=== PATIENT | female | born 1990 | race Caucasian/White ===

== ENCOUNTER → 2016-09-29 | Outpatient (CLI) | payer BC ==
--- NOTE | 2016-09-29 13:12 | RAD ---
Indication fever for 2 weeks. Chest pain and shortness of breath. PA and lateral views of the chest were obtained. Comparison is made to an examination 01/04/2011. The heart, pulmonary vessels and mediastinum appear normal. The lungs are clear. There has not been a significant change compared to the previous exam. IMPRESSION: Normal study
== END | disposition home or self-care (01) ==
LOC: RAD 12:51
PROVIDERS: ATTEND Family Medicine
DX: R50.9 Fever, unspecified (principal); R07.9 Chest pain, unspecified; R06.02 Shortness of breath
CPT/HCPCS: 71020

== ENCOUNTER → 2016-09-29 | Outpatient (CLI) | payer BC | END | disposition home or self-care (01) | LOC: LAB 13:38 | PROVIDERS: ATTEND Family Medicine | DX: F41.9 Anxiety disorder, unspecified (principal) | CPT/HCPCS: 36415; 85379 ==

== ENCOUNTER 2016-10-12 20:37 | Emergency (ER) | payer BC ==
--- NOTE | 2016-10-12 21:16 | PHYS DOC ---
General Chief Complaint: CHEST PAIN Stated Complaint: CHEST PAIN Time Seen by MD: 20:52 Source: patient, family Exam Limitations: no limitations Problems: History of Present Illness Initial Comments Patient is a 26-year-old female who comes to the ED complaining of chest pain and palpitations. Patient states for the past 3 weeks she has had continuous palpitations with shortness of breath and today she developed left-sided chest pain with arm and neck aching and nausea no vomiting. Symptoms came on at rest. Patient denies any exacerbating or relieving factors. Patient has been evaluated for this at [facility] with normal findings. Patient was diagnosed with anxiety and prescribed Xanax. Patient saw her primary care doctor Dr. Szymanski who also ran some tests and diagnosed the patient with anxiety. He prescribed Zoloft which the patient refuses to take. Patient denies any stressors or anxiety she says she has history of anxiety in the past and this is not it. Patient is insistent that she is having a heart attack and she is going to . She also states that she's having trouble sleeping and concentrating and she is constantly watching her vital signs fretting over her blood pressure which is normal. Patient's mom is accompanying her, she answers questions for the patient and continually rubs the patient's shoulders and the patient becomes very needy while her mom is in the exam room. Patient readily admits to smoking cigarettes and marijuana and when it is pointed out that marijuana and cigarettes can make palpitations worse she becomes defensive and states she has used these substances for years and they've never caused her any problems. ED vital signs: 99.3, 98, 18, 151/92, 100% room air Timing/Duration: constant (at least 3 weeks) Severity: severe Modifying Factors: improves with other Associated Symptoms: chest pain, shortness of breath, other Allergies: Coded Allergies: No Known Drug Allergies (Unverified , 10/12/16) Past Medical History Medical History: other (endometriosis, Crohn's disease, anxiety/panic) Surgical History: other (hernia repair, exploratory laparotomy) Social History Smoker: cigarettes Alcohol: none Drugs: marijuana Review of Systems Constitutional: see HPI, denies chills, denies fever Respiratory: see HPI, denies cough, shortness of breath, denies wheezing Cardiovascular: chest pain, palpitations, denies syncope Gastrointestinal: denies abdominal pain, denies diarrhea, nausea, denies vomiting Genitourinary: denies dysuria, denies frequency, denies hematuria Musculoskeletal: denies back pain, denies joint swelling, denies neck pain Psychiatric/Neurological: see HPI, denies headache Hematologic/Lymphatic: denies blood clots, denies easy bleeding, denies easy bruising Physical Exam General Appearance: WD/WN, moderate distress Eyes: bilateral eye normal inspection, bilateral eye PERRL, bilateral eye EOMI Ear, Nose, Throat: hearing grossly normal, normal ENT inspection, normal pharynx Neck: non-tender, supple Respiratory: normal breath sounds, no respiratory distress Cardiovascular: normal peripheral pulses, regular rate, rhythm Gastrointestinal: non tender, soft Back: no CVA tenderness, no vertebral tenderness Extremities: non-tender, normal inspection, no pedal edema Neurologic/Psychiatric: coat baster II-XII nml as tested, no motor/sensory deficits, alert, oriented x 3, other (very anxious worrisome defensive good eye contact and speech normal denies suicidal or homicidal ideation no witnessed hallucinations) Skin: normal color, warm/dry Orders, Labs, Meds EKG: Sinus tachycardia 102 bpm, no STEMI interpreted by me. Chest AP: No acute cardiopulmonary process, it was reviewed by me. Pertinent labs: Potassium 3.2, d-dimer and cardiac enzymes within normal limits , urine drug screen positive for benzodiazepines and marijuana. PE and acute coronary syndrome as well as acute pulmonary issues ruled out in the emergency department. I discussed need for Holter monitor and outpatient cardiology referral. If cardiology evaluation negative must consider anxiety as possible etiology for symptoms. The patient is very frustrated becomes cry as she expected her condition to be resolved after tonight ED visit. She was advised to stop smoking cigarettes and marijuana. IMPRESSIONS: Chest Pain Hypokalemia Marijuana Abuse Tobaccoism Departure Time of Disposition: 22:23 Disposition: 01 HOME, SELF-CARE Diagnosis: Chest Pain nonspecific Condition: STABLE Patient Instructions: Chest Pain (Nonspecific), [id number] Additional Instructions: Rest, activity as tolerated. Aggressive hydration with Gatorade and water. Discontinue marijuana abuse, seek medical assistance if necessary. An outpatient cardiology evaluation is recommended. Follow-up with Dr. Szymanski this week for a recheck and to discuss possibility of event monitor and/or cardiology referral. Return to ED with new or changing symptoms. DIEGO ELAINE DO Oct 12, 2016 21:16
[2016-10-12 21:28] LABS: BASO # 0.1 x10^3/uL (0.0-0.2); BASO % 1 % (0-3); EOS # 0.1 x10^3/uL (0.0-0.7); EOS % 2 % (0-3); HEMATOCRIT 40.4 % (36.0-47.0); HEMOGLOBIN 13.8 g/dL (12.0-15.5); LYMPH # 4.2 x10^3/uL (1.0-4.8); LYMPH % 45 % (24-48); MEAN CORPUSCULAR HEMOGLOBIN 31 pg (25-35); MEAN CORPUSCULAR HGB CONC 34 g/dL (31-37); MEAN CORPUSCULAR VOLUME 90 fL (79-100); MONO # 0.6 x10^3/uL (0.0-1.1); MONO % 7 % (0-9); NEUT # 4.3 x10^3uL (1.8-7.7); NEUT % 46 % (31-73); PLATELET COUNT 192 x10^3/uL (140-400); RED BLOOD COUNT 4.47 x10^6/uL (3.50-5.40); RED CELL DISTRIBUTION WIDTH 13.5 % (11.5-14.5); WHITE BLOOD COUNT 9.3 x10^3/uL (4.0-11.0)
[2016-10-12 21:39] LABS: AMPHETAMINE/METHAMPHETAMINE NEG (NEG); BARBITURATES NEG (NEG); BENZODIAZEPINES POS (NEG); CANNABINOIDS POS (NEG); COCAINE NEG (NEG); METHADONE NEG (NEG); OPIATES NEG (NEG); PHENCYCLIDINE NEG (NEG)
[2016-10-12 21:42] LABS: ALBUMIN 3.7 g/dL (3.4-5.0); ALBUMIN/GLOBULIN RATIO 1.1 (1.0-1.7); CALCIUM 8.7 mg/dL (8.5-10.1); CREATININE 0.6 mg/dL (0.6-1.0); GFR 121.8; POTASSIUM 3.2 mmol/L (3.5-5.1); TOTAL BILIRUBIN 0.3 mg/dL (0.2-1.0); TOTAL PROTEIN 7.1 g/dL (6.4-8.2)
[2016-10-12 21:43] LABS: U PREG PATIENT NEGATIVE (NEG)
[2016-10-12 21:50] LABS: BILIRUBIN,URINE NEG (NEG); CLARITY,URINE CLEAR; COLOR,URINE YELLOW; GLUCOSE,URINE NEG (NEG)
[2016-10-12 21:51] LABS: BACTERIA,URINE 0 /HPF (0-FEW); NITRITE,URINE NEG (NEG); RBC,URINE 0 /HPF (0-2); SQUAMOUS EPITHELIAL CELL,UR MOD /LPF; UROBILINOGEN,URINE 0.2 mg/dL (0.2 mg/dL)
--- NOTE | 2016-10-12 21:55 | EKG ---
[address] [address] Test Date: 2016-10-12 Test Time: 21:01:08 Pat Name: URBANO ARIAS Department: Room: Gender: F Rn Child: MAYANK : 1990 Requested By: DIEGO ELAINE Order Number: [id number] Reading MD: Sonny Tolbert Measurements Intervals Ringle Rate: 102 P: -19 SD: 138 QRS: 69 QRSD: 78 T: 38 QT: 330 QTc: 434 Interpretive Statements SINUS TACHYCARDIA Electronically Signed On 10-14-2016 11:02:53 CDT by Sonny Tolbert
[2016-10-12 22:11] VITALS: BP 132/91
[2016-10-12] MEDS ORDERED: POTASSIUM CHLORIDE 20 MEQ TABLET.ER. PO ONE (22:15)
--- NOTE | 2016-10-13 07:44 | RAD ---
Portable chest, 10/12/2016: History: Chest pain Comparison is made to a study from 09/29/2016. The heart size and pulmonary vascularity are normal. No pulmonary infiltrates are seen. There is no evidence of pleural fluid. There is a minimal thoracic scoliosis. IMPRESSION: No acute cardiopulmonary abnormality is detected.
== END 2016-10-12 22:35 | disposition home or self-care (01) ==
LOC: ER 20:37
DX: R07.89 Other chest pain (principal); E87.6 Hypokalemia; F12.10 Cannabis abuse, uncomplicated; F17.210 Nicotine dependence, cigarettes, uncomplicated; K50.90 Crohn's disease, unspecified, without complications; F41.9 Anxiety disorder, unspecified
CPT/HCPCS: 36415; 71010; 80053; 80305; 80320; 81001; 81025; 82550; 83690; 84484; 85027; 85379; 93005; G0481; 99285-25

== ENCOUNTER → 2017-09-16 | Outpatient (CLI) | payer BC ==
--- NOTE | 2017-09-16 17:19 | RAD ---
Left RIBS with chest, 3 views, 09/16/2017: HISTORY: Left-sided rib pain No rib fracture or bony abnormality is detected. There is no evidence of underlying pneumothorax, hemothorax or pulmonary infiltrate. The heart size is normal. There is a minimal thoracic scoliosis IMPRESSION: No significant left rib abnormality is detected. Electronically signed by: Max Min MD (09/16/2017 5:16 PM) [facility]
== END | disposition home or self-care (01) ==
LOC: PMG 15:05
PROVIDERS: ATTEND Physician Assistant
DX: M41.84 Other forms of scoliosis, thoracic region (principal)
CPT/HCPCS: 71101

== ENCOUNTER → 2017-10-11 | Outpatient (CLI) | payer OTHER ==
--- NOTE | 2017-10-11 14:31 | RAD ---
EXAM: Abdomen series. HISTORY: Pain. COMPARISON: 06/08/2012 FINDINGS: A frontal view of the chest and frontal upright and supine views of the abdomen are obtained. There is no infiltrate, pleural effusion or pneumothorax. The heart is normal in size. There is gas and stool within the colon. No abnormally dilated air-filled loop of bowel seen. There is no free air. IMPRESSION: 1. No acute pulmonary finding. 2. Nonobstructive bowel gas pattern. Electronically signed by: Renetta Cain MD (10/11/2017 2:27 PM) [place] [id number]
== END | disposition home or self-care (01) ==
LOC: PMG 09:11
PROVIDERS: ATTEND Physician Assistant Medical
DX: K50.90 Crohn's disease, unspecified, without complications (principal)
CPT/HCPCS: 74022

== ENCOUNTER 2018-01-21 10:34 | Emergency (ER) | payer OTHER ==
[~2018-01-21] VITALS: Ht 154.9 cm; Wt 53.6 kg
[2018-01-21] MEDS ORDERED: IV NORMAL SALINE 1,000ML 1,000 ML IV SCH (11:00)
--- NOTE | 2018-01-21 11:10 | EKG ---
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
[2018-01-21 11:41] LABS: BASO % 1 % (0-3); EOS # 0.1 x10^3/uL (0.0-0.7); EOS % 1 % (0-3); HEMATOCRIT 46.6 % (36.0-47.0); HEMOGLOBIN 15.8 g/dL (12.0-15.5); LYMPH # 2.4 x10^3/uL (1.0-4.8); LYMPH % 33 % (24-48); MEAN CORPUSCULAR HEMOGLOBIN 30 pg (25-35); MEAN CORPUSCULAR HGB CONC 34 g/dL (31-37); MEAN CORPUSCULAR VOLUME 90 fL (79-100); MONO # 0.3 x10^3/uL (0.0-1.1); MONO % 5 % (0-9); NEUT # 4.3 x10^3uL (1.8-7.7); NEUT % 61 % (31-73); PLATELET COUNT 242 x10^3/uL (140-400); RED BLOOD COUNT 5.21 x10^6/uL (3.50-5.40); RED CELL DISTRIBUTION WIDTH 13.8 % (11.5-14.5); WHITE BLOOD COUNT 7.1 x10^3/uL (4.0-11.0)
[2018-01-21 11:48] LABS: BARBITURATES NEG (NEG); BENZODIAZEPINES NEG (NEG); CANNABINOIDS NEG (NEG); COCAINE NEG (NEG); METHADONE NEG (NEG); OPIATES NEG (NEG); PHENCYCLIDINE NEG (NEG)
[2018-01-21 11:49] LABS: AMPHETAMINE/METHAMPHETAMINE NEG (NEG)
[2018-01-21 11:53] LABS: ALBUMIN 4.1 g/dL (3.4-5.0); ALBUMIN/GLOBULIN RATIO 1.1 (1.0-1.7); CALCIUM 10.1 mg/dL (8.5-10.1); CREATININE 0.7 mg/dL (0.6-1.0); GFR 101.1; POTASSIUM 3.8 mmol/L (3.5-5.1); TOTAL BILIRUBIN 0.4 mg/dL (0.2-1.0); TOTAL PROTEIN 7.8 g/dL (6.4-8.2)
[2018-01-21 11:57] LABS: BACTERIA,URINE FEW /HPF (0-FEW); BILIRUBIN,URINE NEG (NEG); CLARITY,URINE CLEAR; COLOR,URINE YELLOW; GLUCOSE,URINE NEG (NEG); NITRITE,URINE NEG (NEG); RBC,URINE OCC /HPF (0-2); SQUAMOUS EPITHELIAL CELL,UR FEW /LPF; UROBILINOGEN,URINE 0.2 mg/dL (0.2 mg/dL)
[2018-01-21 12:12] LABS: U PREG PATIENT NEGATIVE (NEG)
--- NOTE | 2018-01-21 12:21 | PHYS DOC ---
Past History Past Medical History: Other Past Surgical History: Other Additional Smoking Information: 1/2 ppd x10 years Alcohol Use: Rarely Drug Use: None Adult General Chief Complaint Chief Complaint: DIZZY/LIGHT HEADED HPI HPI Patient is a 27 year old female with history of Crohn's disease on injection of Entyvio every 8 weeks who presents with complaining of feeling funny since yesterday. Patient states since yesterday she doesn't feel right but she cannot explain how is her feeding. Patient states when she walks she doesn't feel her feet in right way. Patient complaining of few episode of chest pain and shortness of breath that resolved. She denies headache, fever and chills, abdominal pain, nausea and vomiting, vaginal bleeding or discharge, , urinary symptom, changing her medication, taking illegal drugs or alcohol, history of the same problem. Review of Systems Review of Systems Constitutional: Denies fever or chills [] Eyes: Denies change in visual acuity, redness, or eye pain [] HENT: Denies nasal congestion or sore throat [] Respiratory: Denies cough or shortness of breath [] Cardiovascular: No additional information not addressed in HPI [] GI: Denies abdominal pain, nausea, vomiting, bloody stools or diarrhea [] : Denies dysuria or hematuria [] Musculoskeletal: Denies back pain or joint pain [] Integument: Denies rash or skin lesions [] Neurologic: Denies headache, focal weakness or sensory changes [] Endocrine: Denies polyuria or polydipsia [] All other systems were reviewed and found to be within normal limits, except as documented in this note. Current Medications Current Medications Current Medications Medications (Trade) Dose Ordered Sig/[facility] Start Time Stop Time Status Last Admin Dose Admin Sodium Chloride 1,000 ml @ 1,000 mls/hr Q1H 01/21/18 11:00 01/21/18 11:59 DC 01/21/18 11:20 1,000 MLS/HR Allergies Allergies Allergies Coded Allergies Type Severity Reaction Last Updated Verified No Known Drug Allergies 10/12/16 No Physical Exam Physical Exam Constitutional: Well developed, well nourished, no acute distress, non-toxic appearance. [] HENT: Normocephalic, atraumatic, bilateral external ears normal, oropharynx moist, no oral exudates, nose normal. [] Eyes: PERRLA, EOMI, conjunctiva normal, no discharge. [] Neck: Normal range of motion, no tenderness, supple, no stridor. [] Cardiovascular:Heart rate regular rhythm, no murmur [] Lungs & Thorax: Bilateral breath sounds clear to auscultation [] Abdomen: Bowel sounds normal, soft, no tenderness, no masses, no pulsatile masses. [] Skin: Warm, dry, no erythema, no rash. [] Back: No tenderness, no CVA tenderness. [] Extremities: No tenderness, no cyanosis, no clubbing, ROM intact, no edema. [] Neurologic: Alert and oriented X 3, normal motor function, normal sensory function, no focal deficits noted. [] Psychologic: Affect normal, judgement normal, mood normal. [] Current Patient Data Vital Signs Vital Signs Date Time Temp Pulse Resp B/P (MAP) Pulse Ox O2 Delivery O2 Flow Rate FiO2 01/21/18 10:44 98.6 84 16 100 Room Air Lab Results Laboratory Tests Test 01/21/18 11:20 White Blood Count 7.1 x10^3/uL (4.0-11.0) Red Blood Count 5.21 x10^6/uL (3.50-5.40) Hemoglobin 15.8 g/dL (12.0-15.5) H Hematocrit 46.6 % (36.0-47.0) Mean Corpuscular Volume 90 fL (79-100) Mean Corpuscular Hemoglobin 30 pg (25-35) Mean Corpuscular Hemoglobin Concent 34 g/dL (31-37) Red Cell Distribution Width 13.8 % (11.5-14.5) Platelet Count 242 x10^3/uL (140-400) Neutrophils (%) (Auto) 61 % (31-73) Lymphocytes (%) (Auto) 33 % (24-48) Monocytes (%) (Auto) 5 % (0-9) Eosinophils (%) (Auto) 1 % (0-3) Basophils (%) (Auto) 1 % (0-3) Neutrophils # (Auto) 4.3 x10^3uL (1.8-7.7) Lymphocytes # (Auto) 2.4 x10^3/uL (1.0-4.8) Monocytes # (Auto) 0.3 x10^3/uL (0.0-1.1) Eosinophils # (Auto) 0.1 x10^3/uL (0.0-0.7) Basophils # (Auto) 0.0 x10^3/uL (0.0-0.2) Urine Collection Type Unknown Urine Color Yellow Urine Clarity Clear Urine pH 7.0 Urine Specific Hamer 1.010 Urine Protein Neg (NEG-TRACE) Urine Glucose (UA) Neg mg/dL (NEG) Urine Ketones (Stick) Neg mg/dL (NEG) Urine Blood Neg (NEG) Urine Nitrite Neg (NEG) Urine Bilirubin Neg (NEG) Urine Urobilinogen Dipstick 0.2 mg/dL (0.2 mg/dL) Urine Leukocyte Esterase Neg (NEG) Urine RBC Occ /HPF (0-2) Urine WBC 1-4 /HPF (0-4) Urine Squamous Epithelial Cells Few /LPF Urine Transitional Epithelial Cells Occ /LPF Urine Bacteria Few /HPF (0-FEW) Urine Test Negative (NEG) Sodium Level 140 mmol/L (136-145) Potassium Level 3.8 mmol/L (3.5-5.1) Chloride Level 105 mmol/L (98-107) Carbon Dioxide Level 26 mmol/L (21-32) Anion Gap 9 (6-14) Blood Urea Nitrogen 4 mg/dL (7-20) L Creatinine 0.7 mg/dL (0.6-1.0) Estimated GFR (Cockcroft-Gault) 101.1 BUN/Creatinine Ratio 6 (6-20) Glucose Level 85 mg/dL (70-99) Lactic Acid Level 0.8 mmol/L (0.4-2.0) Calcium Level 10.1 mg/dL (8.5-10.1) Total Bilirubin 0.4 mg/dL (0.2-1.0) Aspartate Amino Transferase (AST) 19 U/L (15-37) Alanine Aminotransferase (ALT) 33 U/L (14-59) Alkaline Phosphatase 72 U/L (46-116) Troponin I Quantitative < 0.017 ng/mL (0-0.055) Total Protein 7.8 g/dL (6.4-8.2) Albumin 4.1 g/dL (3.4-5.0) Albumin/Globulin Ratio 1.1 (1.0-1.7) Lipase 225 U/L (73-393) Urine Opiates Screen Neg (NEG) Urine Methadone Screen Neg (NEG) Urine Barbiturates Neg (NEG) Urine Phencyclidine Screen Neg (NEG) Urine Amphetamine/Methamphetamine Neg (NEG) Urine Benzodiazepines Screen Neg (NEG) Urine Cocaine Screen Neg (NEG) Urine Cannabinoids Screen Neg (NEG) Urine Ethyl Alcohol Neg (NEG) EKG EKG EKG interpreted by me. EKG at 1106 showed normal sinus rhythm at rate of 72, no acute ST and T-wave abnormalities, multiple artifacts. Radiology/Procedures Radiology/Procedures [address] [address] IMAGING REPORT Signed PATIENT: URBANO WARREN ACCOUNT: [id number] : 1990 LOCATION: ER AGE: 27 SEX: F EXAM STATUS: PRE ER ORD. PHYSICIAN: KATELYN CANTRELL MD REASON: funny feeling, focal numbness PROCEDURE: CT HEAD WO CONTRAST CT HEAD WO CONTRAST History: Headaches and dizziness, body numbness for 1 to 2 days Comparison: None. Technique: Noncontrast CT imaging was performed of the head. Exposure: One or more of the following individualized dose reduction techniques were utilized for this examination: 1. Automated exposure control 2. Adjustment of the mA and/or kV according to patient size 3. Use of iterative reconstruction technique. Findings: There is mild motion. No convincing acute extra-axial or parenchymal hemorrhage is identified. There is no significant intra-axial mass effect, midline shift, or extra-axial fluid collection. The raman-white differentiation of the major vascular territories is preserved. The ventricles, sulci, and cisterns are within normal limits in size and configuration. The mastoid air cells and the visualized paranasal sinuses are aerated. No acute calvarial abnormality is identified. Impression: 1. No convincing acute intracranial abnormality is identified, exam degraded by some motion. Electronically signed by: Matt Gutierres MD (01/21/2018 1:05 PM) [facility] DICTATED AND SIGNED BY: MATT GUTIERRES MD DATE: 01/21/18 8209 CC: KATELYN CANTRELL MD; JYOTSNA COURTNEY ~ Course & Med Decision Making Course & Med Decision Making Pertinent Labs and Imaging studies reviewed. (See chart for details) Evaluation of patient in ER showed 27-year-old male patient with history of Crohn's disease with complaining of not feeling right and feeling funny. Patient had unremarkable physical exam and negative orthostatic vitals. Labs including CBC, CMP, cardiac enzymes, UA and UDS was unremarkable except for mild UTI. And treated with IV fluid and states her problems did not change. Patient complaining of not feeling Feet and CT head was unremarkable. Patient states she has history of anxiety and didn't take her anxiety medication today. Patient instructed to continue her anxiety medication and follow with her primary care physician or return to ER if not getting better. [] Dragon Disclaimer Dragon Disclaimer This electronic medical record was generated, in whole or in part, using a voice recognition dictation system. Departure Departure: Impression: Primary Impression: Urinary tract infection Additional Impressions: History of Crohn's disease Weakness Disposition: HOME, SELF-CARE (@1311) Condition: STABLE Referrals: JYOTSNA COURTNEY (PCP) Patient Instructions: Urinary Tract Infection, Weakness Additional Instructions: Drink plenty of liquids Follow-up with your primary care physician in 3-5 days Return to ER if not getting better Scripts Ciprofloxacin Hcl (CIPRO) 250 Mg Tablet 1 TAB PO BID, #6 TAB Prov: KATELYN CANTRELL MD 01/21/18 Critical Care Time Critical care time was 70 minutes exclusive of procedures. Problem Qualifiers KATELYN CANTRELL MD Jan 21, 2018 12:21
[2018-01-21 13:04] VITALS: BP 120/79
--- NOTE | 2018-01-21 13:08 | RAD ---
CT HEAD WO CONTRAST History: Headaches and dizziness, body numbness for 1 to 2 days Comparison: None. Technique: Noncontrast CT imaging was performed of the head. Exposure: One or more of the following individualized dose reduction techniques were utilized for this examination: 1. Automated exposure control 2. Adjustment of the mA and/or kV according to patient size 3. Use of iterative reconstruction technique. Findings: There is mild motion. No convincing acute extra-axial or parenchymal hemorrhage is identified. There is no significant intra-axial mass effect, midline shift, or extra-axial fluid collection. The raman-white differentiation of the major vascular territories is preserved. The ventricles, sulci, and cisterns are within normal limits in size and configuration. The mastoid air cells and the visualized paranasal sinuses are aerated. No acute calvarial abnormality is identified. Impression: 1. No convincing acute intracranial abnormality is identified, exam degraded by some motion. Electronically signed by: Rigo Gutierres MD (01/21/2018 1:05 PM) [facility]
[2018-01-21] MEDS ORDERED: CIPR250T30 PO (13:13)
== END 2018-01-21 13:30 | disposition home or self-care (01) ==
LOC: ER 10:34
DX: R53.1 Weakness (principal); N39.0 Urinary tract infection, site not specified; K50.90 Crohn's disease, unspecified, without complications; R42 Dizziness and giddiness; F17.210 Nicotine dependence, cigarettes, uncomplicated
CPT/HCPCS: 36415; 70450; 80053; 80307; 81001; 81025; 83605; 83690; 84484; 85025; 93005; 96360; 99285-25; G0479; J7030

== ENCOUNTER → 2020-09-25 | Outpatient (CLI) | payer BC ==
[~2020-09-25] MED LIST: CIPR250T30 PO; IOHEXOL 240 MG/ML 50ML VIAL. ONE; IOHEXOL 240 MG/ML 50ML VIAL. PO ONE
[2020-09-25 14:56] LABS: BASO # 0.1 x10^3/uL (0.0-0.2); BASO % 1 % (0-3); EOS # 0.3 x10^3/uL (0.0-0.7); EOS % 2 % (0-3); HEMATOCRIT 39.5 % (36.0-47.0); HEMOGLOBIN 13.1 g/dL (12.0-15.5); LYMPH # 4.1 x10^3/uL (1.0-4.8); LYMPH % 37 % (24-48); MEAN CORPUSCULAR HEMOGLOBIN 30 pg (25-35); MEAN CORPUSCULAR HGB CONC 33 g/dL (31-37); MEAN CORPUSCULAR VOLUME 91 fL (79-100); MONO # 0.7 x10^3/uL (0.0-1.1); MONO % 6 % (0-9); NEUT % 54 % (31-73); PLATELET COUNT 195 x10^3/uL (140-400); RED BLOOD COUNT 4.34 x10^6/uL (3.50-5.40); RED CELL DISTRIBUTION WIDTH 13.9 % (11.5-14.5); U PREG PATIENT NEGATIVE (NEG); WHITE BLOOD COUNT 11.1 x10^3/uL (4.0-11.0)
[2020-09-25 15:00] LABS: ALBUMIN 3.7 g/dL (3.4-5.0); ALBUMIN/GLOBULIN RATIO 1.1 (1.0-1.7); C REACTIVE PROTEIN 0.7 mg/L (0-3.3); CALCIUM 9.1 mg/dL (8.5-10.1); CREATININE 0.6 mg/dL (0.6-1.0); POTASSIUM 4.1 mmol/L (3.5-5.1); TOTAL BILIRUBIN 0.2 mg/dL (0.2-1.0)
[2020-09-25] MEDS: IOHEXOL 300 MG/ML 75 ML VIAL. IV ONE (15:25)
--- NOTE | 2020-09-25 15:55 | RAD ---
EXAM: CT ABDOMEN/PELVIS WITH CONTRAST. HISTORY: Crohn disease, abdominal pain. TECHNIQUE: Computed tomography of the abdomen and pelvis was performed after the intravenous administ ration of iodinated contrast. One or more of the following individualized dose reduction techniques w ere utilized for this examination: 1. Automated exposure control. 2. Adjustment of the mA and/or kV according to patient size. 3. Use of iterative reconstruction technique. COMPARISON: None. FINDINGS: Lung windows through the visualized portions of the bases reveal mild atelectasis. Bone win dows reveal no suspicious lesions. The liver, gallbladder, spleen, gallbladder, pancreas, adrenal glands and kidneys are unremarkable. T here are no pathologically enlarged lymph nodes. No small bowel wall thickening is identified. The contrast has not completely traverses small bowel, but there are no dilated loops or strictures suggestive of obstruction. Stool throughout the colon is consistent with constipation. There is no colonic or gastric wall thickening. The distal esophagus i s unremarkable by CT. The appendix is not inflamed. Bilateral Bartholin's cysts are suspected measuring approximately 1.2 c m. IMPRESSION: 1. No evidence of active bowel inflammation currently. No strictures or obstruction. 2. Correlate for mild constipation. 3. Correlate for 1.2 cm of bilateral Bartholin's cysts. Electronically signed by: Niktia Castañeda MD (09/25/2020 3:53 PM) [facility]
== END ==
LOC: CT 14:18
PROVIDERS: ATTEND Emergency Medicine
DX: K50.90 Crohn's disease, unspecified, without complications (principal); K59.00 Constipation, unspecified
CPT/HCPCS: 36415; 74177; 80053; 81025; 85025; 86140; Q9967